=== PATIENT | female | born 1955 | race Caucasian/White ===

== ENCOUNTER 2022-09-17 11:10 | Observation (INO) ==
[2022-09-17 14:39] VITALS: BMI 35.6
[2022-09-17] MEDS: NS 1,000 ML IV 1,000 ML IV SCH (14:52)
--- NOTE | 2022-09-17 16:25 | DR.CONSULT ---
Consult - Consultation for Day of: Date: 09/17/22 (GI) - History of Present Illness History of Present Illness: Patient is a 67 y/o who is referred for rectal bleeding. Patient has complaints of hematochezia for several days. Patient reports one small bloody BM since admit to [facility]. Last colonoscopy 09/11/22- colon polyps (pathology pending), internal hemorrhoids. Denies previous EGD. - Past Surgical History Surgical History: , Hysterectomy, Mastectomy - Family History Family Medical History: Diabetes Mellitus, Hypertension - Social History Does patient currently use any type of tobacco product: No Have you used tobacco products in the last 12 months: No Type of Tobacco Use: None Does any household member use tobacco: No Alcohol Use: None Drug Use: None - Medications Home Medications: aspirin Allergy (Verified 09/11/22 07:31) candesartan [From Atacand] Allergy (Verified 09/11/22 07:31) naproxen [From Aleve] Allergy (Verified 09/11/22 07:31) CONTINUE taking the following medications amlodipine 5 mg tablet 5 mg PO DAILY 09/17/22 [History] anastrozole 1 mg tablet 1 mg PO DAILY 09/17/22 [History] atorvastatin 10 mg tablet 10 mg PO DAILY 09/17/22 [History] carvedilol 25 mg tablet 25 mg PO BID 09/17/22 [History] citalopram 40 mg tablet (Celexa) 40 mg PO DAILY 09/17/22 [History] clonidine HCl 0.1 mg tablet 0.1 mg PO BID 09/17/22 [History] cyanocobalamin (vitamin B-12) 1,000 mcg/mL injection solution (Dodex) 1,000 mcg IM QMONTH 09/17/22 [History] ergocalciferol (vitamin D2) 1,250 mcg (50,000 unit) capsule (Drisdol) 50,000 unit PO WEEKLY 09/17/22 [History] furosemide 40 mg tablet 40 mg PO DAILY 09/17/22 [History] glipizide 10 mg tablet 10 mg PO BID 09/17/22 [History] lisinopril 30 mg tablet 30 mg PO DAILY 09/17/22 [History] montelukast 10 mg tablet 10 mg PO DAILY 09/17/22 [History] omeprazole 20 mg capsule,delayed release 20 mg PO DAILY 09/17/22 [History] - Review of Systems Constitutional: See HPI. denies: No Symptoms Reported, Fever, Chills, Sweats, Weakness, Malaise, Other Eyes: No Symptoms Reported. denies: See HPI, Pain, Vision Change, Conjunctivae Inflammation, Eyelid Inflammation, Redness, Other ENT: No Symptoms Reported. denies: See HPI, Ear Pain, Ear Discharge, Nose Pain, Nose Discharge, Nose Congestion, Mouth Pain, Mouth Swelling, Throat Pain, Throat Swelling, Other Respiratory: No Symptoms Reported. denies: See HPI, Cough, Dry, Shortness of Breath, Hemoptysis, SOB with Excertion, Pleuritic Pain, Sputum, Wheezing, Other Cardiovascular: No Symptoms Reported. denies: Chest Pain, See HPI, Palpitations, Orthopnea, Paroxysmal Noc. Dyspnea, Edema, Light Headedness, Other Gastrointestinal: See HPI, Hematochezia. denies: No Symptoms Reported, Nausea, Vomiting, Abdominal Pain, Diarrhea, Constipation, Melena, Other Genitourinary: No Symptoms Reported. denies: See HPI, Dysuria, Frequency, Incontinence, Hematuria, Retention, Other Musculoskeletal: No Symptoms Reported. denies: See HPI, Shoulder Pain, Arm Pain, Back Pain, Hand Pain, Leg Pain, Foot Pain, Neck Pain, Other Skin: No Symptoms Reported. denies: See HPI, Rash, Lesions, Jaundice, Bruising, Wound, Ecchymosis, Other Neurological: No Symptoms Reported. denies: See HPI, Weakness, Numbness, Incoordination, Change in Speech, Confusion, Seizures, Other - Physical Exam Vital Signs: Temperature 98.5 F Pulse Rate [Bilateral Radial] 60 Respiratory Rate 20 Blood Pressure [Right Arm] 170/77 Blood Pressure 185/86 O2 Sat by Pulse Oximetry 95 Oriented: Normal. negative: Time, Person, Place, Not Oriented, Unable to test, Other Eyes: negative: Normal, Blurred Vision, Diplopia, Discharge, Pain, Redness, Photophobia, Other Ear: negative: Normal, Right, Left, Swelling, Ecchymosis, Hemotypanum, Abrasion, Laceration Nose: negative: Normal, Injected, Discharge, Blood, Other Throat: negative: Normal, Tonsillar Hypertrophy, Red, Exudate, Dry, Other Respiratory: Clear Throughout. negative: Diminished Throughout, Rhonchi Throughout, Rales Throughout, Wheezes Throughout, RUL Clear, RML Clear, RLL Clear, KRISTINA Clear, LML Clear, LLL Clear, RUL Diminished, RML Diminished, RLL Diminished, KRISTINA Diminished, LML Diminished, LLL Diminished, RUL Absent, RML Absent, RLL Absent, KRISTINA Absent, LML Absent, LLL Absent, RUL Rhonchi, RML Rhonchi, RLL Rhonchi, KRISTINA Rhonchi, LML Rhonchi, LLL Rhonchi, RUL Insp. Wheeze, RML Insp. Wheeze, RLL Insp. Wheeze, KRISTINA Insp.Wheeze, LML Insp.Wheeze, LLL Insp.Wheeze, RUL Exp. Wheeze, RML Exp. Wheeze, RLL Exp. Wheeze, KRISTINA Exp. Wheeze, LML Exp. Wheeze, LLL Exp. Wheeze, RUL Rales, RML Rales, RLL Rales, KRISTINA Rales, LML Rales, LLL Rales, RUL Rub, RML Rub, RLL Rub, KRISTINA Rub, LML Rub, LLL Rub, RUL Squeak, RML Squeak, RLL Squeak, KRISTINA Squeak, LML Squeak, LLL Squeak Cardiovascular: Normal. negative: Tachycardia, Bradycardia, Irregular, S3, S4, Systolic, Diastolic, Murmur, Edema, Other : negative: Normal, Dysuria, Hematuria, Frequency, Discharge, Testicular Pain, Bleeding, , Other Auscultation: Bowel Sounds: Normal. negative: Bruit, Absent, Increased, Decreased, High Pitched, Other Palpation: negative: Normal, Spleen Enlarged, Liver Enlarged, Mass Pulsatile, Other Tenderness: Normal. negative: Diffuse, RUQ, RLQ, LUQ, LLQ, Epigastric, Periumbilical, Suprapubic, Mild, Moderate, Severe, Rebound, Guarding, Rigidity, Other Skin: Normal. negative: Decreased Turgur, Rash, Papular, Macular, Maculopapular, Vesicular, Pustular, Petechial, Red, Tender, Hot, Diaphoresis, Wound, Bruising, Ecchymosis, Other Musculoskeletal: Normal. negative: Right, Left, Shoulder, Clavicle, Arm, Elbow, Forearm, Wrist, Hand, Hip, Thigh, Knee, Leg, Ankle, Foot, Back:Thoracic, Back:Lumbar, Back:Midline, Back:Paraspinous, Pelvis, Swelling, Tender, Deformity, Pulse Deficit, Motor Deficit, Sensory Deficit, Instability, Crepitance Psychiatric: Normal. negative: Anxiety, Depression, Agitation, Other Mood Description: Calm. negative: Angry, Apathetic, Depressed, Fearful, Flat, Happy, Hostile, Sad, Suspicious, Withdrawn, Anxious, Appropriate, Labile Affect: negative: Angry, Anxious, Depressed, Flat, Hysterical, Quiet, Violent, Normal Speech Pattern: Clear. negative: Appropriate, Unclear, Inappropriate, Delayed, Slurred, Excessive, Aphasic, Artificially Ventilated, Trach(not ventilated) - Plan Plan: Assessment1. 1. Hematochezia, S/P polypectomy. 2. Anemia. Plan: Monitor Hgb, transfuse as needed. EGD in AM, if stable. Keep NPO after midnight. Plan D/W Dr. Bonner - Allergies Allergies/Adverse Reactions: Allergies Allergy/AdvReac Type Severity Reaction Status Date / Time aspirin Allergy Verified 09/11/22 07:31 candesartan [From Atacand] Allergy Verified 09/11/22 07:31 naproxen [From Aleve] Allergy Verified 09/11/22 07:31
[2022-09-17 17:21] LABS: BASOPHILS % (AUTO) 0.1 % (0.2-1.0); EOSINOPHILS # (AUTO) 0.1 x10^3/uL (0.0-0.2); EOSINOPHILS % (AUTO) 0.6 % (0.9-2.9); HEMATOCRIT 24.7 % (36.0-47.0); HEMOGLOBIN 8.4 g/dL (12.0-16.0); LYMPHOCYTES # (AUTO) 1.1 X10^3/uL (1.3-2.9); LYMPHOCYTES % (AUTO) 8.9 % (21.0-51.0); MEAN CORPUSCULAR HEMOGLOBIN 27.1 pg (27.0-34.0); MEAN CORPUSCULAR HGB CONC 34.1 g/dL (33.0-35.0); MEAN CORPUSCULAR VOLUME 79.6 fL (80.0-100.0); MEAN PLATELET VOLUME 7.9 fL (7.4-11.0); MONOCYTES # (AUTO) 0.6 x10^3/uL (0.3-0.8); MONOCYTES % (AUTO) 5.3 % (0.0-13.0); NEUTROPHILS # (AUTO) 10.1 x10^3/uL (2.2-4.8); NEUTROPHILS % (AUTO) 85.1 % (42.0-75.0); RED CELL DISTRIBUTION WIDTH 15.6 % (11.6-16.5); WHITE BLOOD COUNT 11.9 X10^3/uL (3.6-10.0)
[2022-09-17 17:32] LABS: ALBUMIN 2.3 g/dL (3.4-5.0); CALCIUM 7.5 mg/dL (8.5-10.1); CARBON DIOXIDE 33.3 mmol/L (21-32); COR CA(FOR HYPOALB) 8.9 mg/dL (8.5-10.1); CREATININE 1.63 mg/dL (0.55-1.02); TOTAL PROTEIN 5.2 g/dL (6.4-8.2)
[2022-09-17] MEDS: PROTONIX INJ 40 MG VIAL IVP SCH (20:51)
[2022-09-17] MEDS: CATAPRES TAB 0.1 MG PO SCH (20:51)
[2022-09-17] MEDS: LIPITOR TAB 10 MG PO SCH (20:51)
[2022-09-17] MEDS: PEPCID 20 MG VIAL 20 MG in NS 50 ML IV 50 ML IV SCH (20:52)
[2022-09-18 05:27] LABS: BASOPHILS % (AUTO) 0.4 % (0.2-1.0); EOSINOPHILS # (AUTO) 0.2 x10^3/uL (0.0-0.2); EOSINOPHILS % (AUTO) 2.2 % (0.9-2.9); HEMATOCRIT 22.6 % (36.0-47.0); HEMOGLOBIN 7.8 g/dL (12.0-16.0); LYMPHOCYTES # (AUTO) 1.3 X10^3/uL (1.3-2.9); LYMPHOCYTES % (AUTO) 13.9 % (21.0-51.0); MEAN CORPUSCULAR HEMOGLOBIN 27.6 pg (27.0-34.0); MEAN CORPUSCULAR HGB CONC 34.7 g/dL (33.0-35.0); MEAN CORPUSCULAR VOLUME 79.6 fL (80.0-100.0); MEAN PLATELET VOLUME 8.6 fL (7.4-11.0); MONOCYTES # (AUTO) 0.9 x10^3/uL (0.3-0.8); MONOCYTES % (AUTO) 9.4 % (0.0-13.0); NEUTROPHILS # (AUTO) 6.8 x10^3/uL (2.2-4.8); NEUTROPHILS % (AUTO) 74.1 % (42.0-75.0); RED BLOOD COUNT 2.84 X10^6/uL (3.5-5.4); RED CELL DISTRIBUTION WIDTH 15.7 % (11.6-16.5); WHITE BLOOD COUNT 9.1 X10^3/uL (3.6-10.0)
[2022-09-18] MEDS: NS 1,000 ML IV 1,000 ML IV SCH ×3 (05:27→21:42)
[2022-09-18 05:46] LABS: ALANINE AMINOTRANSFERASE 10 Units/L (12-78); ALBUMIN 2.2 g/dL (3.4-5.0); ALKALINE PHOSPHATASE 67 Units/L (46-116); ASPARTATE AMINO TRANSFERASE 13 Units/L (15-37); BLOOD UREA NITROGEN 31 mg/dL (7-18); CALCIUM 7.6 mg/dL (8.5-10.1); CARBON DIOXIDE 32.5 mmol/L (21-32); CHLORIDE 106 mmol/L (98-107); CREATININE 1.49 mg/dL (0.55-1.02); SODIUM 143 mmol/L (136-145); eGFR NON BLACK RACES 37 (>60)
[2022-09-18] MEDS: CELEXA PO SCH (09:05)
[2022-09-18] MEDS: SINGULAIR TAB 10 MG PO SCH (09:06)
[2022-09-18] MEDS: ARIMIDEX PO SCH (09:06)
[2022-09-18] MEDS: NORVASC TAB 5 MG PO SCH (09:06)
[2022-09-18] MEDS: PROTONIX INJ 40 MG VIAL IVP SCH ×2 (09:06→21:42)
[2022-09-18] MEDS: CATAPRES TAB 0.1 MG PO SCH ×2 (09:06→21:13)
[2022-09-18] MEDS: ZESTRIL TAB 10 MG PO SCH (09:08)
[2022-09-18] MEDS ORDERED: DIPRIVAN VIAL 20 ML ONE (11:46)
[2022-09-18 12:20] LABS: BASOPHILS % (AUTO) 0.3 % (0.2-1.0); EOSINOPHILS # (AUTO) 0.2 x10^3/uL (0.0-0.2); EOSINOPHILS % (AUTO) 2.9 % (0.9-2.9); HEMATOCRIT 22.4 % (36.0-47.0); HEMOGLOBIN 7.6 g/dL (12.0-16.0); LYMPHOCYTES # (AUTO) 0.9 X10^3/uL (1.3-2.9); LYMPHOCYTES % (AUTO) 11.8 % (21.0-51.0); MEAN CORPUSCULAR HEMOGLOBIN 27.1 pg (27.0-34.0); MEAN CORPUSCULAR VOLUME 79.7 fL (80.0-100.0); MONOCYTES # (AUTO) 0.6 x10^3/uL (0.3-0.8); MONOCYTES % (AUTO) 8.2 % (0.0-13.0); NEUTROPHILS % (AUTO) 76.8 % (42.0-75.0); RED BLOOD COUNT 2.81 X10^6/uL (3.5-5.4); RED CELL DISTRIBUTION WIDTH 15.6 % (11.6-16.5); WHITE BLOOD COUNT 7.8 X10^3/uL (3.6-10.0)
--- NOTE | 2022-09-18 12:46 | DR.H&P ---
H&P - History & Physical for Day of: H&P Date: 09/17/22 - Chief Complaint Chief Complaint: WEAKNESS, DIZZINESS, RECTAL BLEEDING - History of Present Illness History of Present Illness: IS A 67 YEAR OLD PATIENT OF IN [place], [place]. PATIENT PRESENTED TO [facility] EMERGENCY ROOM WITH COMPLAINTS OF RECTAL BLEEDING, DIZZINESS, AND SEVERE WEAKNESS. SHE REPORTS THAT SYMPTOMS STARTED ON 09/16/22. PATIENT DOES HAVE A HISTORY OF ANEMIA, BUT HAS NEVER REQUIRED BLOOD TRANSFUSIONS. SHE HAD A COLONOSCOPY WITH ON 09/11/22 WHICH REVEALED COLYN POLYPS AND INTERNAL HEMORRHOIDS. PATHOLOGY IS PENDING. SHE DENIED A PREVIOUS EGD. HER PMH INCLUDES: OBESITY, CHF, HTN, COPD, ASTHMA, RENAL DISEASE, DM II, ANEMIA, BREAST CANCER, UTERINE CANCER, , HYSTERECTOMY, AND MASTECTOMY. AT [facility] ER, LABS REVEALED A HEMOGLOBIN OF 6.2. BLOOD TRANSFUSION WAS STARTED. PATIENT HAD ALREADY HAD AN EGD WITH SCHEDULED FOR 09/18/22 AT [facility], THEREFORE, WE ACCEPTED PATIENT A DIRECT ADMISSION (OBSERVATION STATUS) TO OUR FACILITY FOR FURTHER TREATMENT AND EGD. ON ARRIVAL TO THE HOSPITAL, PATIENT WAS RECEIVING HER SECOND UNIT OF BLOOD. HER VITALS ON ADMISSION WERE: [id number]%-189/84. AFTER TRANSFUSION WAS COMPLETE, LABS WERE OBTAINED. WBC 11.9, RBC 3.10, HGB 8.4, HCT 24.7, PLT COUNT 229, SODIUM 140, POTASSIUM 4.5, CHLORIDE 103, CARBON DIOXIDE 33.3, BUN 35, CREATININE 1.63, GLUCOSE 139, CALCIUM 7.5, AST 9, ALT 9, ALK PHOS 71, TOTAL PROTEIN 5.2, ALBUMIN 2.3. SHE WAS STARTED ON NORMAL SALINE AT 30 ML/HR, PEPCID 20MG IV HS, PROTONIX 40MG IV BID, AND HER HOME MEDICATIONS OF NORVASC, ARIMIDEX, ATORVASTATIN, CELEXA, CATAPRES, LISINOPRIL, AND MONTELUKAST WERE RESUMED. WE CONSULTED . HE PLANS TO PERFORM AN EGD. OTHERWISE, WE PLAN TO FOLLOW-UP WITH AM LABS AND TRANSFUSE ADDITIONAL UNITS NEEDED. TIME SPENT ON CLINICAL ASSESSMENT, REVIWING LABS AND IMAGING, DECISION MAKING, AND DOCUMENTATION GREATER THAN 75 MINUTES. - Past Medical History Past Medical History: Anemia, Asthma, CHF, COPD, Diabetes, Hypertension, Renal Disease Additional Medical History: HISTORY OF BREAST CANCER AND UTERINE CANCER - Past Surgical History Surgical History: , Hysterectomy, Mastectomy - Family History Family Medical History: Diabetes Mellitus, Hypertension - Social History Does patient currently use any type of tobacco product: No Have you used tobacco products in the last 12 months: No Type of Tobacco Use: None Does any household member use tobacco: No Alcohol Use: None Drug Use: None - Medications Home Medications: aspirin Allergy (Verified 09/11/22 07:31) candesartan [From Atacand] Allergy (Verified 09/11/22 07:31) naproxen [From Aleve] Allergy (Verified 09/11/22 07:31) CONTINUE taking the following medications amlodipine 5 mg tablet 5 mg PO DAILY 09/17/22 [History] anastrozole 1 mg tablet 1 mg PO DAILY 09/17/22 [History] atorvastatin 10 mg tablet 10 mg PO DAILY 09/17/22 [History] carvedilol 25 mg tablet 25 mg PO BID 09/17/22 [History] citalopram 40 mg tablet (Celexa) 40 mg PO DAILY 09/17/22 [History] clonidine HCl 0.1 mg tablet 0.1 mg PO BID 09/17/22 [History] cyanocobalamin (vitamin B-12) 1,000 mcg/mL injection solution (Dodex) 1,000 mcg IM QMONTH 09/17/22 [History] ergocalciferol (vitamin D2) 1,250 mcg (50,000 unit) capsule (Drisdol) 50,000 unit PO WEEKLY 09/17/22 [History] furosemide 40 mg tablet 40 mg PO DAILY 09/17/22 [History] glipizide 10 mg tablet 10 mg PO BID 09/17/22 [History] lisinopril 30 mg tablet 30 mg PO DAILY 09/17/22 [History] montelukast 10 mg tablet 10 mg PO DAILY 09/17/22 [History] omeprazole 20 mg capsule,delayed release 20 mg PO DAILY 09/17/22 [History] - Review of Systems Constitutional: See HPI, Weakness. denies: Fever, Chills Eyes: No Symptoms Reported ENT: No Symptoms Reported Respiratory: Shortness of Breath Cardiovascular: Light Headedness Gastrointestinal: Hematochezia Genitourinary: No Symptoms Reported Musculoskeletal: No Symptoms Reported Skin: No Symptoms Reported Neurological: Weakness - Physical Exam Vital Signs: Temperature 98.2 F Pulse Rate [Bilateral Radial] 56 Respiratory Rate 16 Blood Pressure [Left Arm] 168/72 Blood Pressure [Right Arm] 155/70 Blood Pressure 185/86 O2 Sat by Pulse Oximetry 98 Oriented: Normal. negative: Time, Person, Place, Not Oriented, Unable to test, Other Eyes: Normal Ear: Normal Nose: Normal Throat: Normal Respiratory: Clear Throughout Cardiovascular: Normal : Normal Auscultation: Bowel Sounds: Normal Palpation: Normal Tenderness: Normal Skin: Normal Musculoskeletal: Normal Psychiatric: Normal Mood Description: Calm Affect: Normal Speech Pattern: Clear - Assessment/Plan (1) Symptomatic anemia Status: Acute Plan: ADMIT, MONITOR H&H, CONSULT , EGD, NORMAL SALINE AT 30 ML/HR, PEPCID 20MG IV HS, PROTONIX 40MG IV BID, AND HER HOME MEDICATIONS OF NORVASC, ARIMIDEX, ATORVASTATIN, CELEXA, CATAPRES, LISINOPRIL, AND MONTELUKAST WERE RESUMED. (2) Hematochezia Status: Acute (3) Status post colonoscopy with polypectomy Status: Acute (4) Generalized weakness Status: Acute (5) CHF (congestive heart failure) Qualifiers: Heart failure type: unspecified Heart failure chronicity: chronic Qualified Code(s): I50.9 - Heart failure, unspecified Status: Chronic (6) HTN (hypertension) Qualifiers: Hypertension type: primary hypertension Qualified Code(s): I10 - Essential (primary) hypertension Status: Chronic (7) COPD (chronic obstructive pulmonary disease) Qualifiers: COPD type: unspecified COPD Qualified Code(s): J44.9 - Chronic obstructive pulmonary disease, unspecified Status: Chronic (8) Chronic renal disease Qualifiers: Chronic kidney disease stage: unspecified stage Qualified Code(s): N18.9 - Chronic kidney disease, unspecified Status: Chronic (9) DMII (diabetes mellitus, type 2) Qualifiers: Diabetes mellitus intermediate insulin use: unspecified intermediate insulin use status Diabetes mellitus complication status: with hyperglycemia Qualified Code(s): E11.65 - Type 2 diabetes mellitus with hyperglycemia Status: Chronic - Allergies Allergies/Adverse Reactions: Allergies Allergy/AdvReac Type Severity Reaction Status Date / Time aspirin Allergy Verified 09/11/22 07:31 candesartan [From Atacand] Allergy Verified 09/11/22 07:31 naproxen [From Aleve] Allergy Verified 09/11/22 07:31
[2022-09-18 18:31] LABS: HEMATOCRIT 23.3 % (36.0-47.0); HEMOGLOBIN 7.9 g/dL (12.0-16.0)
[2022-09-18] MEDS: LIPITOR TAB 10 MG PO SCH (21:14)
[2022-09-18] MEDS: PEPCID 20 MG VIAL 20 MG in NS 50 ML IV 50 ML IV SCH (21:41)
[2022-09-19 00:41] LABS: HEMATOCRIT 22.4 % (36.0-47.0); HEMOGLOBIN 7.6 g/dL (12.0-16.0)
[2022-09-19 05:10] LABS: BASOPHILS % (AUTO) 0.2 % (0.2-1.0); EOSINOPHILS # (AUTO) 0.5 x10^3/uL (0.0-0.2); EOSINOPHILS % (AUTO) 6.2 % (0.9-2.9); HEMATOCRIT 23.8 % (36.0-47.0); HEMOGLOBIN 8.1 g/dL (12.0-16.0); LYMPHOCYTES % (AUTO) 11.7 % (21.0-51.0); MEAN CORPUSCULAR HEMOGLOBIN 27.3 pg (27.0-34.0); MEAN CORPUSCULAR HGB CONC 33.9 g/dL (33.0-35.0); MEAN CORPUSCULAR VOLUME 80.5 fL (80.0-100.0); MEAN PLATELET VOLUME 8.4 fL (7.4-11.0); MONOCYTES # (AUTO) 0.8 x10^3/uL (0.3-0.8); MONOCYTES % (AUTO) 9.1 % (0.0-13.0); NEUTROPHILS # (AUTO) 6.1 x10^3/uL (2.2-4.8); NEUTROPHILS % (AUTO) 72.8 % (42.0-75.0); RED BLOOD COUNT 2.96 X10^6/uL (3.5-5.4); RED CELL DISTRIBUTION WIDTH 15.9 % (11.6-16.5); WHITE BLOOD COUNT 8.4 X10^3/uL (3.6-10.0)
[2022-09-19 05:27] LABS: ALBUMIN 2.6 g/dL (3.4-5.0); CALCIUM 7.9 mg/dL (8.5-10.1); CARBON DIOXIDE 29.8 mmol/L (21-32); CREATININE 1.46 mg/dL (0.55-1.02); TOTAL PROTEIN 5.6 g/dL (6.4-8.2)
[2022-09-19] MEDS ORDERED: POTASSIUM CHLORIDE LIQ 20 MEQ UDC PO PRN (05:45)
[2022-09-19] MEDS ORDERED: POTASSIUM CHL 60 MEQ/NS 0.45% 500 ML IV PRN (05:45)
[2022-09-19] MEDS ORDERED: K-RIDER 10 MEQ/NS 100 ML 10 MEQ/100 ML BAG IV PRN (05:45)
[2022-09-19] MEDS ORDERED: K-DUR TAB 20 MEQ PO PRN (05:45)
[2022-09-19] MEDS ORDERED: POTASSIUM CHL 40 MEQ/NS 0.45% 500 ML IV PRN (05:45)
[2022-09-19] MEDS ORDERED: KLOR-CON PO PRN (05:45)
[2022-09-19] MEDS ORDERED: MICRO K EXTEN CAP 10 MEQ PO PRN (05:45)
[2022-09-19] MEDS: MAGNESIUM SULFATE 1 GRAM/100 mL PREMIX 1 G/100 ML BAG IV PRN ×2 (05:59→09:07)
[2022-09-19] MEDS: NS 1,000 ML IV 1,000 ML IV SCH ×2 (07:22→18:34)
[2022-09-19] MEDS: ZESTRIL TAB 10 MG PO SCH (09:08)
[2022-09-19] MEDS: CELEXA PO SCH (09:09)
[2022-09-19] MEDS: SINGULAIR TAB 10 MG PO SCH (09:09)
[2022-09-19] MEDS: CATAPRES TAB 0.1 MG PO SCH ×2 (09:09→21:02)
[2022-09-19] MEDS: NORVASC TAB 5 MG PO SCH (09:09)
[2022-09-19] MEDS: ARIMIDEX PO SCH (09:09)
[2022-09-19] MEDS: PROTONIX INJ 40 MG VIAL IVP SCH ×2 (09:13→21:02)
[2022-09-19 12:49] LABS: HEMATOCRIT 27.1 % (36.0-47.0); HEMOGLOBIN 9.2 g/dL (12.0-16.0)
[2022-09-19] MEDS: LIPITOR TAB 10 MG PO SCH (21:02)
[2022-09-19] MEDS: PEPCID 20 MG VIAL 20 MG in NS 50 ML IV 50 ML IV SCH (21:02)
--- NOTE | 2022-09-19 21:58 | PCM.PROG ---
Progress Note - Progress Note for Day of Date of Exam: 09/19/22 - Subjective Subjective: The patient is a 67yo WF who was admitted secondary to anemia and lower GI bleed. Patient has had upper endoscopy with findings of esophagitis and gastritis. Patient states she is feeling much btter today. Asks to advance diet. States that she has passed few old clots with BM. State she was having bright red blood but has not seen any since. States that she has history of iron deficiency and B!@ deficiency. Denies any other complaints. - Past Medical Family Social History Past Med/Fam/Surg Hx: No changes since H&P Allergies: Allergies aspirin Allergy (Verified 09/11/22 07:31) candesartan [From Atacand] Allergy (Verified 09/11/22 07:31) naproxen [From Aleve] Allergy (Verified 09/11/22 07:31) - Review of Systems ROS: No change since H&P - Vital Signs and I&O's Vital Signs: Temperature 98.7 F Pulse Rate [Bilateral Radial] 64 Respiratory Rate 18 Blood Pressure [Left Arm] 178/76 Blood Pressure [Right Arm] 164/70 Blood Pressure 185/86 O2 Sat by Pulse Oximetry 94 Intake and Output: Intake & Output 09/16/22 09/17/22 09/18/22 09/19/22 23:59 23:59 23:59 23:59 Intake Total 1440 / 1440 1975 Balance 1440 / 1440 1975 - Physical Exam Oriented: Normal. negative: Time, Person, Place, Not Oriented, Unable to test, Other Eyes: Normal Ear: Normal Nose: Normal Throat: Normal Respiratory: Normal Cardiovascular: Normal : Normal Auscultation: Bowel Sounds: Normal Tenderness: Normal Skin: Normal Musculoskeletal: Normal Psychiatric: Normal Mood Description: Calm Affect: Normal Speech Pattern: Clear, Appropriate - Laboratory and Diagnostics Result Diagrams: 09/19/22 12:25 09/19/22 04:30 Labs: Laboratory WBC 8.4 X10^3/uL (3.6-10.0) 09/19/22 04:30 RBC 2.96 X10^6/uL (3.5-5.4) L 09/19/22 04:30 Hgb 9.2 g/dL (12.0-16.0) L 09/19/22 12:25 Hct 27.1 % (36.0-47.0) L 09/19/22 12:25 MCV 80.5 fL (80.0-100.0) 09/19/22 04:30 MCH 27.3 pg (27.0-34.0) 09/19/22 04:30 MCHC 33.9 g/dL (33.0-35.0) 09/19/22 04:30 RDW 15.9 % (11.6-16.5) 09/19/22 04:30 Plt Count 215 X10^3/uL (150.0-450.0) 09/19/22 04:30 MPV 8.4 fL (7.4-11.0) 09/19/22 04:30 Neut % (Auto) 72.8 % (42.0-75.0) 09/19/22 04:30 Lymph % (Auto) 11.7 % (21.0-51.0) L 09/19/22 04:30 [place] % (Auto) 9.1 % (0.0-13.0) 09/19/22 04:30 Eos % (Auto) 6.2 % (0.9-2.9) H 09/19/22 04:30 Baso % (Auto) 0.2 % (0.2-1.0) 09/19/22 04:30 Neut # (Auto) 6.1 x10^3/uL (2.2-4.8) H 09/19/22 04:30 Lymph # (Auto) 1.0 X10^3/uL (1.3-2.9) L 09/19/22 04:30 [place] # (Auto) 0.8 x10^3/uL (0.3-0.8) 09/19/22 04:30 Eos # (Auto) 0.5 x10^3/uL (0.0-0.2) H 09/19/22 04:30 Baso # (Auto) 0.0 X10^3/uL (0.0-0.1) 09/19/22 04:30 Absolute Nucleated RBC 0.0 /100WBC 09/19/22 04:30 Sodium 143 mmol/L (136-145) 09/19/22 04:30 Corrected Sodium 143 mmol/L (136-145) 09/19/22 04:30 Potassium 3.4 mmol/L (3.5-5.1) L 09/19/22 04:30 Chloride 107 mmol/L (98-107) 09/19/22 04:30 Carbon Dioxide 29.8 mmol/L (21-32) 09/19/22 04:30 BUN 19 mg/dL (7-18) H 09/19/22 04:30 Creatinine 1.46 mg/dL (0.55-1.02) H 09/19/22 04:30 Est GFR (MDRD) Af Amer 46 (>60) L 09/19/22 04:30 Est GFR (MDRD) Non-Af 38 (>60) L 09/19/22 04:30 Glucose 114 mg/dL (65-99) H 09/19/22 04:30 Calcium 7.9 mg/dL (8.5-10.1) L 09/19/22 04:30 Corrected Calcium 9.0 mg/dL (8.5-10.1) 09/19/22 04:30 Magnesium 1.7 mg/dL (2.0-2.9) L 09/19/22 04:30 Iron 37 ug/dL (50-175) L 09/19/22 12:25 Transferrin 200 mg/dL (202-364) L 09/19/22 12:25 Ferritin 156 ng/mL (8-252) 09/19/22 12:25 Total Bilirubin 0.40 mg/dL (0.2-1.0) 09/19/22 04:30 AST 16 Units/L (15-37) 09/19/22 04:30 ALT 13 Units/L (12-78) 09/19/22 04:30 Alkaline Phosphatase 76 Units/L (46-116) 09/19/22 04:30 Total Protein 5.6 g/dL (6.4-8.2) L 09/19/22 04:30 Albumin 2.6 g/dL (3.4-5.0) L 09/19/22 04:30 Globulin 3.0 g/dL (2.5-4.5) 09/19/22 04:30 Albumin/Globulin Ratio 0.9 Ratio (1.1-2.1) L 09/19/22 04:30 Vitamin B12 963 pg/mL (193-986) 09/19/22 12:25 Folate 12.4 ng/mL (>8.6) 09/19/22 12:25 Tissue Pathology To follow 09/18/22 11:51 - Plan (1) Symptomatic anemia Status: Acute Plan: MONITOR H&H, CONSULT , EGD, NORMAL SALINE AT 30 ML/HR, PEPCID 20MG IV HS, PROTONIX 40MG IV BID, AND HER HOME MEDICATIONS OF NORVASC, ARIMIDEX, ATORVASTATIN, CELEXA, CATAPRES, LISINOPRIL, AND MONTELUKAST WERE RESUMED. (2) Hematochezia Status: Acute (3) CHF (congestive heart failure) Status: Chronic Qualifiers: Heart failure type: unspecified Heart failure chronicity: chronic Qualified Code(s): I50.9 - Heart failure, unspecified (4) HTN (hypertension) Status: Chronic Qualifiers: Hypertension type: primary hypertension Qualified Code(s): I10 - Essential (primary) hypertension (5) Chronic renal disease Status: Chronic Qualifiers: Chronic kidney disease stage: unspecified stage Qualified Code(s): N18.9 - Chronic kidney disease, unspecified (6) DMII (diabetes mellitus, type 2) Status: Chronic Qualifiers: Diabetes mellitus terminal makeup operator insulin use: unspecified alf insulin use status Diabetes mellitus complication status: with hyperglycemia Qualified Code(s): E11.65 - Type 2 diabetes mellitus with hyperglycemia
[2022-09-19] MEDS ORDERED: INJECTAFER 750 MG in NS 250 ML IV 250 ML IV NR (22:01)
[2022-09-20 04:29] LABS: BASOPHILS % (AUTO) 0.2 % (0.2-1.0); EOSINOPHILS # (AUTO) 0.5 x10^3/uL (0.0-0.2); EOSINOPHILS % (AUTO) 5.8 % (0.9-2.9); HEMATOCRIT 22.2 % (36.0-47.0); HEMOGLOBIN 7.5 g/dL (12.0-16.0); LYMPHOCYTES % (AUTO) 11.8 % (21.0-51.0); MEAN CORPUSCULAR HEMOGLOBIN 27.7 pg (27.0-34.0); MEAN CORPUSCULAR HGB CONC 33.8 g/dL (33.0-35.0); MEAN CORPUSCULAR VOLUME 81.8 fL (80.0-100.0); MEAN PLATELET VOLUME 8.2 fL (7.4-11.0); MONOCYTES # (AUTO) 0.8 x10^3/uL (0.3-0.8); MONOCYTES % (AUTO) 9.5 % (0.0-13.0); NEUTROPHILS # (AUTO) 5.9 x10^3/uL (2.2-4.8); NEUTROPHILS % (AUTO) 72.7 % (42.0-75.0); RED BLOOD COUNT 2.71 X10^6/uL (3.5-5.4); RED CELL DISTRIBUTION WIDTH 15.8 % (11.6-16.5); WHITE BLOOD COUNT 8.1 X10^3/uL (3.6-10.0)
[2022-09-20 04:38] LABS: ALBUMIN 2.4 g/dL (3.4-5.0); CALCIUM 7.4 mg/dL (8.5-10.1); COR CA(FOR HYPOALB) 8.7 mg/dL (8.5-10.1); CREATININE 1.55 mg/dL (0.55-1.02); MAGNESIUM 2.1 mg/dL (2.0-2.9); TOTAL PROTEIN 5.3 g/dL (6.4-8.2)
[2022-09-20] MEDS ORDERED: PROVENTIL NEB TX 0.083% 2.5MG/ 3ML ONE (08:19)
[2022-09-20] MEDS ORDERED: PROVENTIL NEB TX 0.083% 2.5MG/ 3ML NEB PRN (08:27)
[2022-09-20] MEDS: NS 1,000 ML IV 1,000 ML IV SCH ×2 (08:48→20:16)
[2022-09-20] MEDS: ARIMIDEX PO SCH (08:53)
[2022-09-20] MEDS: NORVASC TAB 5 MG PO SCH (08:53)
[2022-09-20] MEDS: SINGULAIR TAB 10 MG PO SCH (08:53)
[2022-09-20] MEDS: CATAPRES TAB 0.1 MG PO SCH ×2 (08:53→20:14)
[2022-09-20] MEDS: ZESTRIL TAB 10 MG PO SCH (08:54)
[2022-09-20] MEDS: CELEXA PO SCH (08:54)
[2022-09-20] MEDS: PROTONIX INJ 40 MG VIAL IVP SCH ×2 (08:54→20:14)
[2022-09-20 12:17] LABS: HEMATOCRIT 28.1 % (36.0-47.0)
[2022-09-20 12:24] LABS: HEMOGLOBIN 9.5 g/dL (12.0-16.0)
[2022-09-20 16:03] LABS: ABG ALLEN TEST POS; ABG BASE EXCESS 5.1 mmol/L (-2.0-2.0); ABG HCO3 29.9 mmol/L (22-26)
[2022-09-20] MEDS: GLUCOTROL PO SCH (16:23)
[2022-09-20] MEDS ORDERED: NovoLIN R (or HumuLIN R) SC PRN (16:25)
[2022-09-20] MEDS: LIPITOR TAB 10 MG PO SCH (20:14)
[2022-09-20] MEDS: PEPCID 20 MG VIAL 20 MG in NS 50 ML IV 50 ML IV SCH (20:14)
[2022-09-20] MEDS: SNACK - Diabetic Appropriate PO SCH (20:14)
[2022-09-20] MEDS: COREG TAB 25 MG PO SCH (20:36)
[2022-09-21 05:16] LABS: BASOPHILS % (AUTO) 0.2 % (0.2-1.0); EOSINOPHILS # (AUTO) 0.5 x10^3/uL (0.0-0.2); EOSINOPHILS % (AUTO) 5.6 % (0.9-2.9); HEMATOCRIT 23.5 % (36.0-47.0); LYMPHOCYTES # (AUTO) 1.1 X10^3/uL (1.3-2.9); LYMPHOCYTES % (AUTO) 11.3 % (21.0-51.0); MEAN CORPUSCULAR HEMOGLOBIN 27.7 pg (27.0-34.0); MEAN CORPUSCULAR VOLUME 81.2 fL (80.0-100.0); MEAN PLATELET VOLUME 8.4 fL (7.4-11.0); MONOCYTES # (AUTO) 0.9 x10^3/uL (0.3-0.8); MONOCYTES % (AUTO) 9.5 % (0.0-13.0); NEUTROPHILS # (AUTO) 6.9 x10^3/uL (2.2-4.8); NEUTROPHILS % (AUTO) 73.4 % (42.0-75.0); RED BLOOD COUNT 2.89 X10^6/uL (3.5-5.4); RED CELL DISTRIBUTION WIDTH 16.3 % (11.6-16.5); WHITE BLOOD COUNT 9.4 X10^3/uL (3.6-10.0)
[2022-09-21 05:27] LABS: ALANINE AMINOTRANSFERASE 11 Units/L (12-78); ALBUMIN 2.4 g/dL (3.4-5.0); ALKALINE PHOSPHATASE 85 Units/L (46-116); ASPARTATE AMINO TRANSFERASE 12 Units/L (15-37); BLOOD UREA NITROGEN 14 mg/dL (7-18); CALCIUM 7.8 mg/dL (8.5-10.1); CHLORIDE 108 mmol/L (98-107); COR CA(FOR HYPOALB) 9.1 mg/dL (8.5-10.1); CREATININE 1.59 mg/dL (0.55-1.02); SODIUM 144 mmol/L (136-145); TOTAL PROTEIN 5.5 g/dL (6.4-8.2); eGFR NON BLACK RACES 35 (>60)
[2022-09-21] MEDS: GLUCOTROL PO SCH ×2 (06:15→16:43)
--- NOTE | 2022-09-21 06:59 | RAD ---
HISTORYWheezing SOBSTUDYAP chestCOMPARISONJune 2020FINDINGSStable cardiomegaly with no definite pulmonary, hilar or pleural abnormality identified.IMPRESSIONNo change. Stable cardiac enlargement with no developing pulmonary or pleural lesion identified.Electronically signed by: KARINA MCDUFFIE (Sep 21, 2022 06:57:11)
[2022-09-21] MEDS: ZESTRIL TAB 10 MG PO SCH (08:05)
[2022-09-21] MEDS: NORVASC TAB 5 MG PO SCH (08:05)
[2022-09-21] MEDS: CATAPRES TAB 0.1 MG PO SCH ×2 (08:05→20:10)
[2022-09-21] MEDS: CELEXA PO SCH (08:05)
[2022-09-21] MEDS: SINGULAIR TAB 10 MG PO SCH (08:06)
[2022-09-21] MEDS: PROTONIX INJ 40 MG VIAL IVP SCH ×2 (08:06→20:10)
[2022-09-21] MEDS: ARIMIDEX PO SCH (08:06)
[2022-09-21] MEDS: COREG TAB 25 MG PO SCH ×2 (08:06→20:10)
[2022-09-21] MEDS: NS 1,000 ML IV 1,000 ML IV SCH (09:06)
[2022-09-21] MEDS: SNACK - Diabetic Appropriate PO SCH (20:10)
[2022-09-21] MEDS: PEPCID 20 MG VIAL 20 MG in NS 50 ML IV 50 ML IV SCH (20:11)
[2022-09-21] MEDS: LIPITOR TAB 10 MG PO SCH (20:11)
[2022-09-22] MEDS: NS 1,000 ML IV 1,000 ML IV SCH ×2 (04:59→17:13)
[2022-09-22] MEDS: GLUCOTROL PO SCH ×2 (06:16→17:14)
[2022-09-22 06:36] LABS: BASOPHILS % (AUTO) 0.1 % (0.2-1.0); EOSINOPHILS # (AUTO) 0.6 x10^3/uL (0.0-0.2); HEMATOCRIT 25.9 % (36.0-47.0); HEMOGLOBIN 8.6 g/dL (12.0-16.0); LYMPHOCYTES # (AUTO) 0.8 X10^3/uL (1.3-2.9); LYMPHOCYTES % (AUTO) 8.3 % (21.0-51.0); MEAN CORPUSCULAR HEMOGLOBIN 27.4 pg (27.0-34.0); MEAN CORPUSCULAR HGB CONC 33.3 g/dL (33.0-35.0); MEAN CORPUSCULAR VOLUME 82.2 fL (80.0-100.0); MEAN PLATELET VOLUME 8.2 fL (7.4-11.0); MONOCYTES # (AUTO) 0.9 x10^3/uL (0.3-0.8); MONOCYTES % (AUTO) 8.6 % (0.0-13.0); NEUTROPHILS # (AUTO) 7.8 x10^3/uL (2.2-4.8); RED BLOOD COUNT 3.15 X10^6/uL (3.5-5.4); RED CELL DISTRIBUTION WIDTH 16.9 % (11.6-16.5); WHITE BLOOD COUNT 10.2 X10^3/uL (3.6-10.0)
[2022-09-22 06:46] LABS: ALBUMIN 2.7 g/dL (3.4-5.0); CALCIUM 8.1 mg/dL (8.5-10.1); CARBON DIOXIDE 30.8 mmol/L (21-32); COR CA(FOR HYPOALB) 9.1 mg/dL (8.5-10.1); CREATININE 1.5 mg/dL (0.55-1.02)
[2022-09-22 09:12] VITALS: BP 116/78
[2022-09-22] MEDS: CELEXA PO SCH (09:13)
[2022-09-22] MEDS: COREG TAB 25 MG PO SCH (09:13)
[2022-09-22] MEDS: SINGULAIR TAB 10 MG PO SCH (09:13)
[2022-09-22] MEDS: ARIMIDEX PO SCH (09:14)
[2022-09-22] MEDS: NORVASC TAB 5 MG PO SCH (09:14)
[2022-09-22] MEDS: CATAPRES TAB 0.1 MG PO SCH (09:14)
[2022-09-22] MEDS: ZESTRIL TAB 10 MG PO SCH (09:14)
[2022-09-22] MEDS: PROTONIX INJ 40 MG VIAL IVP SCH (09:15)
[2022-09-22] MEDS ORDERED: HEMOCYTE-PLUS PO SCH (10:00)
== END 2022-09-22 17:25 | disposition home or self-care (01) ==
LOC: MED/SURG
PROVIDERS: ADMIT Internal Medicine; ATTEND Internal Medicine
DX: E66.9 Obesity, unspecified; R06.2 Wheezing; K21.00 Gastro-esophageal reflux disease with esophagitis, without bleeding; I50.9 Heart failure, unspecified; K64.8 Other hemorrhoids; Z85.42 Personal history of malignant neoplasm of other parts of uterus; Z85.3 Personal history of malignant neoplasm of breast; N18.9 Chronic kidney disease, unspecified; E11.29 Type 2 diabetes mellitus with other diabetic kidney complication; K92.2 Gastrointestinal hemorrhage, unspecified; E11.65 Type 2 diabetes mellitus with hyperglycemia; J44.9 Chronic obstructive pulmonary disease, unspecified; R53.1 Weakness; Z86.2 Personal history of diseases of the blood and blood-forming organs and certain disorders involving the immune mechanism; I13.0 Hypertensive heart and chronic kidney disease with heart failure and stage 1 through stage 4 chronic kidney disease, or unspecified chronic kidney disease; D50.9 Iron deficiency anemia, unspecified